=== PATIENT | female | born 1965 | race Caucasian/White ===

== ENCOUNTER → 2017-10-01 | Outpatient (CLI) | payer OTHER ==
--- NOTE | 2017-10-02 15:40 | MAMMOGRAPHY REPORT ---
BILATERAL DIGITAL SCREENING MAMMOGRAM TOMOSYNTHESIS WITH CAD: 10/01/2017 CLINICAL HISTORY: Routine screening. TECHNIQUE: Breast tomosynthesis in addition to standard 2D mammography was performed. Current study was also evaluated with a Computer Aided Detection (CAD) system. COMPARISON: Comparison is made to exams dated: 11/24/2015 mammogram, 05/25/2015 mammogram, 11/19/2014 m ammogram, 11/10/2014 mammogram - [facility], 11/26/2012 mammogram, and 01/23/2011 mammo gram. BREAST COMPOSITION: The tissue of both breasts is heterogeneously dense, which may obscure small mas ses. FINDINGS: There is decreased nodularity of the medial right breast, with stable asymmetries in the l ateral right breast. No new suspicious mass, architectural distortion or cluster of microcalcificati ons is seen. IMPRESSION: ACR BI-RADS CATEGORY 1: NEGATIVE There is no mammographic evidence of malignancy. A 1 year screening mammogram is recommended. The pa tient will receive written notification of the results. Approximately 10% of breast cancers are not detected with mammography. A negative mammographic report should not delay biopsy if a clinically suggestive mass is present. Cony Ochoa M.D. ay/:10/01/2017 18:57:06 [employer] Detailer: Rajat THOMAS)(Nancy), [facility] letter sent: Normal 1/2 BI-RADS Code: ACR BI-RADS Category 1: Negative
== END | disposition home or self-care (01) ==
LOC: C.MAMM 14:03
PROVIDERS: ATTEND Obstetrics & Gynecology
DX: Z12.31 Encounter for screening mammogram for malignant neoplasm of breast (principal)

== ENCOUNTER → 2017-11-25 | Outpatient (CLI) | payer OTHER | END | disposition home or self-care (01) | LOC: C.PAPS 17:46 | PROVIDERS: ATTEND Obstetrics & Gynecology | DX: Z01.419 Encounter for gynecological examination (general) (routine) without abnormal findings (principal) ==

== ENCOUNTER 2018-04-07 18:07 | Emergency (ER) | payer OTHER ==
[~2018-04-07] VITALS: Ht 165.1 cm; Wt 69.9 kg
[2018-04-07 18:31] VITALS: TEMP 36.7; Ht 165.1 cm; Wt 69.9 kg
[2018-04-07] MEDS ORDERED: LIDOCAINE 1% BUFFERED INJ 20 ML VIAL INFIL ONE (18:45)
[2018-04-07] MEDS ORDERED: DIPHTHERIA/TETANUS/PERTUSSIS 0.5 ML SYR/VIAL IM. ONE (18:45)
[2018-04-07 19:31] VITALS: BP 138/84; PULSE 68; O2SAT 100
--- NOTE | 2018-04-07 20:48 | EMERGENCY ROOM VISIT NOTE ---
History First contact with patient: 18:34 Chief Complaint: LACERATION/CUT (SUT/DERMABOND) Stated Complaint: CUT RIGHT WRIST Nursing Triage Summary: Knocked glass pitcher off the counter while doing dishes and patient tried to catch it. Laceration to left forearm. History of Present Illness The patient is a 52 year old female who presents to the Emergency Room with complaints of lacerations to her left wrist and right hand. The patient reports that she knocked a glass pitcher off of the counter well washing dishes. She try to catch it right after it hit the countertop and broke, cutting her. The patient denies any significant pain or bleeding. Patient is uncertain of her last tetanus immunization. Review of Systems 6 system review was performed and was negative except for pertinent positives and negatives as indicated in history of present illness Past Medical/Surgical History Medical Problems: (1) Solitary cyst of right breast Surgical Problems: (1) History of cataract surgery Family History Unremarkable Social History Smoking Status: Former Smoker Alcohol Use: occasionally Marital Status: Housing Status: lives with family Occupation Status: employed Current/Historical Medications No Active Prescriptions or Reported Meds Physical Exam Vital Signs Date Time Temp Pulse Resp B/P (MAP) Pulse Ox O2 Delivery O2 Flow Rate FiO2 04/07/18 19:31 68 16 138/84 100 04/07/18 18:31 36.7 81 19 126/80 100 Room Air Physical Exam CONSTITUTIONAL: Healthy and well nourished. Patient does not appear in any acute distress. HEENT: Normocephalic, atraumatic. MUSCULOSKELETAL: Examination shows a 2.5 cm laceration of the left volar wrist. No active bleeding noted. The patient also has a more superficial 1.5 cm laceration across the thenar eminence that will not require suture repair. INTEGUMENTARY: No rash or other significant dermatologic conditions noted. NEUROLOGIC: No focal neurologic deficits noted. Left hand and fingers are sensory intact. Medical Decision & Procedures Medications Administered Medications (Trade) Dose Ordered Sig/Yenny Route Start Time Stop Time Status Last Admin Dose Admin Diphtheria/ Pertussis/Tetanus Vacc (Adacel Inj) 0.5 ml ONCE ONCE IM. 04/07/18 18:45 04/07/18 18:46 DC 04/07/18 19:23 0.5 ML Lidocaine HCl (Buffered Lidocaine 1% Inj) 20 ml ONE ONCE INFIL 04/07/18 18:45 04/07/18 18:46 DC 04/07/18 18:50 20 ML Procedure Laceration repair of the left wrist was performed under local anesthesia after receiving verbal consent from the patient. Using buffered 1% lidocaine without epinephrine, good local anesthesia was administered. The wound was then peripherally cleansed with iodine, then irrigated with normal saline. Exploration of the wound does not show any involvement of the underlying vasculature, nerves, tendons or muscle. No foreign debris appreciated. The wound was then approximated using 5-0 nylon simple interrupted sutures. A bacitracin dressing was applied. The laceration on the right hand was also cleansed and covered with a bacitracin bandage. ED Course Patient history and physical exam were performed. Nurse's notes were reviewed. Vital signs were reviewed and and were normal. Laceration repair was performed under local anesthesia after receiving verbal consent from the patient. Additional verbal and written wound care instructions were provided. Ice and elevation for swelling. Ibuprofen and Tylenol as needed for pain. Suture removal in 12-14 days, or seek reevaluation sooner for any signs of wound infection. The patient was happy with plan of care, voiced understanding of all discharge instructions, and denied any pain at the time of discharge. Medical Decision Medication Reconcilliation Current Medication List: was personally reviewed by co Blood Pressure Screening Patient's blood pressure: Normal blood pressure Impression Primary Impression: Laceration of wrist Additional Impression: Laceration of right hand Departure Information Dispostion Home / Self-Care Condition FAIR Prescriptions No Active Prescriptions or Reported Meds Forms HOME CARE DOCUMENTATION FORM, IMPORTANT VISIT INFORMATION Patient Instructions [facility] Additional Instructions Keep wound clean and dry. Do not allow any crusting or dried blood to accumulate on sutures. If this occurs, use a 1:1 solution of hydrogen peroxide/ water on a Q-tip to clean the wound. Use an antibiotic ointment for 3-4 days, then let wound dry. Suture removal in 12-14 days. Return sooner for any signs of infection (increasing redness, swelling, drainage). Ice and elevate for swelling and pain. Ibuprofen 600 mg and/or Tylenol 1000 mg every 6 hrs if needed for pain. Problem Qualifiers
== END 2018-04-07 19:32 | disposition home or self-care (01) ==
LOC: C.EDB 18:08 → C.EDD 19:32
DX: S61.512A Laceration without foreign body of left wrist, initial encounter (principal); S61.411A Laceration without foreign body of right hand, initial encounter; Y93.G1 Activity, food preparation and clean up; Z98.49 Cataract extraction status, unspecified eye; Z87.891 Personal history of nicotine dependence; Z23 Encounter for immunization